=== PATIENT | female | born 1955 ===

== ENCOUNTER 2025-03-10 09:00 | Day surgery (SDC) | payer OTHER ==
[2025-03-03 10:50] LABS: BASO % 0.7 % (0.1-1.2); EOS # 0.16 (0.04-0.54); EOS % 3.5 % (0.7-7.0); LYMPH # 2.23 (1.18-3.74); LYMPH % 48.5 % (19.3-53.1); MEAN PLATELET VOLUME 10.50 fl (9.4-12.4); MONO # 0.45 (0.24-0.82); MONO % 9.8 % (4.7-12.5); NEUT # 1.72 (1.56-6.13); NEUT % 37.3 % (34.0-71.1); RED CELL DISTRIBUTION WIDTH 15.2 % (11.6-14.4)
[2025-03-03 11:13] VITALS: BP 1264/76
[2025-03-03 11:18] LABS: ALT/SGPT 21.0 U/L (12-78); AST/SGOT 16.0 U/L (15-37); BILIRUBIN TOTAL 0.57 mg/dL (0.3-1.2); BUN CREA RATIO 18.0 (7.0-25.0); CREATININE SERUM 0.61 mg/dL (0.55-1.02); GFR 97.25; GLOBULINA 3.7 G/DL (2.4-3.5); GLUCOSE FASTING 93.0 mg/dL (65-100); OSMOLALITY SERUM 284.0 MOSM/KG (275-295)
[2025-03-03 11:25] LABS: INR 0.96
[~2025-03-10 09:00] MED LIST: SYNTHROID125 MCG; TOPROL XL25 M1
[2025-03-10] MEDS ORDERED: DIPHENHYDRAMINE HCL 50 MG/ML VIAL 1ML IV ONE (14:15)
[2025-03-10] MEDS ORDERED: fentaNYL CITRATE 50 MCG/ML AMPUL IV PUSH ONE (14:15)
[2025-03-10] MEDS ORDERED: MIDAZOLAM HCL 2 MG/2 ML VIAL IV ONE (14:15)
== END 2025-03-10 15:15 | disposition home or self-care (01) ==
LOC: CIR.AMB 09:00 → ADM 09:00 → CIR.AMB 13:00
PROVIDERS: ATTEND Internal Medicine
DX: K63.5 Polyp of colon (principal); K31.7 Polyp of stomach and duodenum; R19.4 Change in bowel habit; K57.30 Diverticulosis of large intestine without perforation or abscess without bleeding; K64.8 Other hemorrhoids; K21.9 Gastro-esophageal reflux disease without esophagitis; K29.60 Other gastritis without bleeding; Z88.6 Allergy status to analgesic agent; Z91.013 Allergy to seafood; Z91.018 Allergy to other foods